=== PATIENT | female | born 1975 | race Asian ===

== ENCOUNTER 2018-11-13 20:43 | Emergency (ER) | payer MEDICAID ==
[~2018-11-13] VITALS: Ht 160 cm; Wt 61.7 kg
[2018-11-13 20:47] VITALS: Ht 160 cm; Wt 61.7 kg
[2018-11-13 22:29] LABS: BASOPHIL % 0.8 % (0-2); PLATELET COUNT 225 x10^3mcL (130-400); RED CELL DISTRIBUTION WIDTH 12.8 % (11.5-14.5)
[2018-11-13 22:36] LABS: CALCIUM 8.2 mg/dL (8.5-10.1); CARBON DIOXIDE 28.8 mmol/L (21-32); CHLORIDE SERUM 109 mmol/L (98-107); CREATININE SERUM 0.7 mg/dL (0.6-1.0); GFR1 > 60 mL/min; GLUCOSE SERUM 86 mg/dL (74-106); POTASSIUM SERUM 3.8 mmol/L (3.5-5.1); SODIUM SERUM 144 mmol/L (136-145)
[2018-11-13 22:41] LABS: ALKALINE PHOSPHATASE 45 U/L (46-116); ALT/SGPT 35 U/L (14-59); AST/SGOT 17 U/L (15-37); BILIRUBIN TOTAL 0.29 mg/dL (0.20-1.00)
[2018-11-13 22:46] LABS: ALBUMIN 3.2 g/dL (3.4-5.0)
[2018-11-13 23:16] VITALS: BP 117/60
== END 2018-11-13 23:19 | disposition home or self-care (01) ==
LOC: ED 20:43
PROVIDERS: Emergency Medicine
DX: M79.10 Myalgia, unspecified site (principal); R21 Rash and other nonspecific skin eruption; R19.7 Diarrhea, unspecified; R10.30 Lower abdominal pain, unspecified; Z98.890 Other specified postprocedural states
CPT/HCPCS: J1885; J7030